=== PATIENT | female | born 1950 | race Caucasian/White ===

== ENCOUNTER 2017-04-04 13:53 | Emergency (ER) | payer MEDICARE, MEDICAID ==
--- NOTE | 2017-04-09 08:46 | ER ---
ADMIT: 04/04/2017 RM/LOC: ER [facility] MR#: [id number] [address] [id number] SEAMUS SCANLON I [address] [place] [address] Emergency Room Report SEX: F AGE: 66 : 1950 DATE: 04/04/2017 SUBJECTIVE: A 66-year-old, exceedingly anxious lady comes in with tenderness in the medial aspect of her right lower leg. See T sheet for history and physical. The patient is diagnosed with anxiety. Her D-dimer is negative at 0.22. Lonnie Landrum MD/ edda JOB #: [id number] CC: Trey Hubbard MD, Attending Physician RICA GREER, Family Physician
== END 2017-04-04 15:35 | disposition home or self-care (01) ==
LOC: ER 13:53
DX: F41.9 Anxiety disorder, unspecified (principal); I10 Essential (primary) hypertension; Z88.6 Allergy status to analgesic agent; Z79.899 Other long term (current) drug therapy